=== PATIENT | female | born 1950 | race Caucasian/White ===

== ENCOUNTER 2016-11-04 03:15 | Emergency (ER) | payer MEDICARE, SELFPAY ==
[2016-11-04] MEDS ORDERED: Sodium Chloride 0.9% 10 ML Syringe FLUSH PRN (03:27)
[2016-11-04] MEDS ORDERED: Aspirin 81 MG Tab.Chew PO ONE (03:40)
--- NOTE | 2016-11-04 03:46 | EDM.PDOC ---
ED HISTORY OF PRESENT ILLNESS - General Chief Complaint: Chest Pain Stated Complaint: CHEST PAIN/ARM PAIN Time Seen by Provider: 11/04/16 03:27 Source of Information: Reports: Patient, RN notes reviewed - History of Present Illness INITIAL COMMENTS - FREE TEXT/NARRATIVE: 66-year-old female comes in short of breath. This started at least several days ago and now getting worse. She states several days ago she was aware that just talking on the phone with a friend or relative that this did make her feel short of breath. States yesterday when she did take out some garbage that she had to stop and catch her breath just getting back into the house. SHe did not having chest discomfort yesterday. She has not been coughing any more than usual. 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 She then awakened and she was even more short of breath and decided she best come to the ED and get this checked out. She does have some mild right arm discomfort at this time. She states her legs may be slightly swollen. SHe has no calf pain warmth or erythema. S she did have some slight nausea earlier but that is gone. No dominant pain at this time. No fever or chills. SHe did have an episode of gout about a week ago. She states her hydrochlorothiazide was stopped at that time. She does have history of hypertension and has been on medication for about 10 years. She has no known history of coronary artery disease. She does not smoke. She is type II diabetic on metformin - Related Data Allergies/ADRs: Allergies Allergy/AdvReac Type Severity Reaction Status Date / Time meperidine [From Demerol] Allergy Dizziness Verified 11/04/16 03:42 Home Meds: Home Meds Ascorbic Acid [Vitamin C] 11/04/16 [History] Aspirin [Lo-Dose Aspirin EC] 81 mg PO DAILY 11/04/16 [History] Levothyroxine [Synthroid] 50 mcg PO DAILY 11/04/16 [History] Lisinopril 40 mg PO DAILY 11/04/16 [History] Multivitamin [Multivitamins] 1 tab PO DAILY 11/04/16 [History] [place]-3 Fatty Acids [Fish Oil] 1,000 mg PO QID 11/04/16 [History] Red Yeast Rice 1 tab PO BID 11/04/16 [History] amLODIPine [Norvasc] 5 mg PO DAILY 11/04/16 [History] metFORMIN [Glucophage XR] 500 mg PO BIDMEALS 11/04/16 [History] Past Medical History Cardiovascular History: Reports: Hypertension Psychiatric History: Reports: Anxiety Endocrine/Metabolic History: Reports: Diabetes, type II, Hypothyroidism Social & Family History - Family History Family Medical History: Noncontributory - Tobacco Use Smoking Status *Q: Never Smoker ED ROS GENERAL - Review of Systems Review Of Systems: See Below Constitutional: Denies: fever, chills, diaphoresis HEENT: Denies: Sinus problem, Throat pain Respiratory: Reports: Shortness of Breath (For several days, worsening), Cough. Denies: Wheezing, Pleuritic Chest Pain, Sputum Cardiovascular: Denies: Chest pain, Lightheadedness, Syncope GI/Abdominal: Reports: Nausea (Gone). Denies: Abdominal pain, Vomiting Musculoskeletal: Denies: leg pain Skin: Reports: no symptoms Neurological: Reports: Dizziness (My). Denies: Numbness, Tingling ED EXAM, GENERAL - Physical Exam Exam: See Below General Appearance: alert, mild distress Eye Exam: bilateral eye: PERRL Throat/Mouth: Normal inspection Head: atraumatic. No: facial swelling Neck: supple, full range of motion, other Respiratory/Chest: respiratory distress (Moderate tachypnea noted). No: rales, rhonchi, wheezing Cardiovascular: tachycardia GI/Abdominal: soft, tender (Mild tenderness upper mid abdomen) Back Exam: No: CVA tenderness (L), CVA tenderness (R) Extremities: pedal edema (Very mild bilateral). No: leg pain, increased warmth , redness Neurological: alert, oriented, no motor/sensory deficits Skin Exam: Warm, Dry, Normal color EKG INTERPRETATION EKG Date: 11/04/16 Rhythm: NSR QRS: other (There are Q waves in inferior leads. She does have some ST elevation in inferior leads and also anteriorly associated with the left bundle branch block) Course - Vital Signs Last Recorded V/S: Last Vital Signs Temp 98.5 F 11/04/16 03:20 Pulse 103 H 11/04/16 07:55 Resp 17 11/04/16 07:55 BP 166/89 H 11/04/16 07:55 Pulse Ox 98 11/04/16 07:55 - Orders/Labs/Meds Orders: Active Orders 24 hr Category Date Time Status EKG 12 Lead [EKG Documentation Completion] [RC] STAT Care 11/04/16 03:28 Active Peripheral IV Care [RC] . DIRECTED Care 11/04/16 03:28 Active Peripheral IV Insertion Adult [OM.PC] Stat Oth 11/04/16 03:28 Ordered Labs: Laboratory Tests 11/04/16 11/04/16 11/04/16 Range/Units 03:30 03:30 03:35 WBC 8.75 (3.98-10.04) K/mm3 RBC 4.71 (3.98-5.22) M/mm3 Hgb 13.0 (11.2-15.7) gm/L Hct 39.8 (34.1-44.9) % MCV 84.5 (79.4-94.8) fl MCH 27.6 (25.6-32.2) pg MCHC 32.7 (32.2-35.5) g/dl RDW Std Deviation 45.0 (36.4-46.3) fL Plt Count 240 (182-369) K/mm3 MPV 11.3 (9.4-12.3) fl Neut % (Auto) 67.5 (34.0-71.1) % Lymph % (Auto) 21.3 (19.3-51.7) % [place] % (Auto) 7.5 (4.7-12.5) % Eos % (Auto) 2.9 (0.7-5.8) Baso % (Auto) 0.6 (0.1-1.2) % Neut # (Auto) 5.91 (1.56-6.13) K/mm3 Lymph # (Auto) 1.86 (1.18-3.74) K/mm3 [place] # (Auto) 0.66 H (0.24-0.36) K/mm3 Eos # (Auto) 0.25 (0.04-0.36) K/mm3 Baso # (Auto) 0.05 (0.01-0.08) K/mm3 D-Dimer, Quantitative (0.19-0.59) mg/L Sodium 141 (136-145) mEq/L Potassium 4.1 (3.5-5.1) mEq/L Chloride 105 (98-107) mEq/L Carbon Dioxide 23 (21-32) mEq/L Anion Gap 17.1 H (5-15) BUN 21 H (7-18) mg/dL Creatinine 1.1 H (0.55-1.02) mg/dL Est Cr Clr Drug Dosing 44.66 mL/min Estimated GFR (MDRD) 50 (>60) mL/min BUN/Creatinine Ratio 19.1 H (14-18) Glucose 155 H (80-115) mg/dL Calcium 9.4 (8.5-10.1) mg/dL Total Bilirubin 0.6 (0.2-1.0) mg/dL AST 24 (15-37) U/L ALT 24 (14-59) U/L Alkaline Phosphatase 88 (46-116) U/L Troponin I 0.023 (0.00-0.056) ng/mL B-Natriuretic Peptide 130 H (0-100) pg/mL Total Protein 7.9 (6.4-8.2) g/dl Albumin 3.7 (3.4-5.0) g/dl Globulin 4.2 gm/dL Albumin/Globulin Ratio 0.9 L (1-2) 11/04/16 11/04/16 Range/Units 03:35 05:32 WBC (3.98-10.04) K/mm3 RBC (3.98-5.22) M/mm3 Hgb (11.2-15.7) gm/L Hct (34.1-44.9) % MCV (79.4-94.8) fl MCH (25.6-32.2) pg MCHC (32.2-35.5) g/dl RDW Std Deviation (36.4-46.3) fL Plt Count (182-369) K/mm3 MPV (9.4-12.3) fl Neut % (Auto) (34.0-71.1) % Lymph % (Auto) (19.3-51.7) % [place] % (Auto) (4.7-12.5) % Eos % (Auto) (0.7-5.8) Baso % (Auto) (0.1-1.2) % Neut # (Auto) (1.56-6.13) K/mm3 Lymph # (Auto) (1.18-3.74) K/mm3 [place] # (Auto) (0.24-0.36) K/mm3 Eos # (Auto) (0.04-0.36) K/mm3 Baso # (Auto) (0.01-0.08) K/mm3 D-Dimer, Quantitative 0.74 H (0.19-0.59) mg/L Sodium (136-145) mEq/L Potassium (3.5-5.1) mEq/L Chloride (98-107) mEq/L Carbon Dioxide (21-32) mEq/L Anion Gap (5-15) BUN (7-18) mg/dL Creatinine (0.55-1.02) mg/dL Est Cr Clr Drug Dosing mL/min Estimated GFR (MDRD) (>60) mL/min BUN/Creatinine Ratio (14-18) Glucose (80-115) mg/dL Calcium (8.5-10.1) mg/dL Total Bilirubin (0.2-1.0) mg/dL AST (15-37) U/L ALT (14-59) U/L Alkaline Phosphatase (46-116) U/L Troponin I 0.029 (0.00-0.056) ng/mL B-Natriuretic Peptide (0-100) pg/mL Total Protein (6.4-8.2) g/dl Albumin (3.4-5.0) g/dl Globulin gm/dL Albumin/Globulin Ratio (1-2) Meds: Medications Discontinued Medications Generic Name Dose Route Start Last Admin Trade Name Freq PRN Reason Stop Dose Admin Aspirin 324 mg 11/04/16 03:40 11/04/16 03:48 Aspirin PO 11/04/16 03:41 324 mg ONETIME ONE Administration Heparin Sodium (Porcine) 8,000 units 11/04/16 06:41 11/04/16 06:50 Heparin Sodium IVPUSH 11/04/16 06:42 8,000 units ONETIME ONE Administration Heparin Sodium/Dextrose 25,000 units in 500 mls @ 31.298 mls/hr 11/04/16 06: 45 Heparin 25,000 Units In D5w 500 Ml IV TITRATE ROSELINE Protocol 15 UNITS/KG/HR Lorazepam 0.25 mg 11/04/16 06:45 11/04/16 06:54 Ativan IVPUSH 11/04/16 06:46 0.25 mg ONETIME ONE Administration Sodium Chloride 10 ml 11/04/16 03:27 11/04/16 03:48 Saline Flush FLUSH 10 ml ASDIRECTED PRN Administration Keep Vein Open - Re-Assessments/Exams Free Text/Narrative Re-Assessment/Exam: 11/04/16 06:33. Repeat troponin came back at 0.29, initial trop 0.23. As noted patient presented with tachypnea, tachycardia, right arm discomfort. An extremely concerned that she has progressing cardiac disease with acute coronary syndrome. I visited with hospitalist and reservations agent periodontist for [facility] who do accept patient in transfer. We will be sending her by ground ambulance. She continues to have no chest pain in her right arm discomfort has resolved. She did become extremely anxious when talking about need for transfer need for further cardiac evaluation. We have given 0.25 mg Ativan IV in addition to prior medications given. 11/05/16 00:15 Departure - Departure Time of Disposition: 06:30 Disposition: DC/Tfer to Acute Hospital 02 Reason for Transfer *Q: Other Condition: fair Clinical Impression: Acute coronary syndrome Forms: ED Department Discharge - My Orders Last 24 Hours: My Active Orders 11/04/16 03:28 EKG 12 Lead [EKG Documentation Completion] [RC] STAT Peripheral IV Care [RC] . DIRECTED Peripheral IV Insertion Adult [OM.PC] Stat - Assessment/Plan Last 24 Hours: My Active Orders 11/04/16 03:28 EKG 12 Lead [EKG Documentation Completion] [RC] STAT Peripheral IV Care [RC] . DIRECTED Peripheral IV Insertion Adult [OM.PC] Stat
[2016-11-04] MEDS ORDERED: Heparin Sodium 5,000 Units/ML Vial IVPUSH ONE (06:41)
[2016-11-04] MEDS ORDERED: LORazepam 2 MG/ML MDV IVPUSH ONE (06:45)
[2016-11-04] MEDS ORDERED: Heparin Sodium/D5W 25,000 UNITS/500 ML BAG IV SCH (06:45)
[2016-11-04 08:03] VITALS: BP 166/89
--- NOTE | 2016-11-04 10:03 | CR ---
Chest: Frontal view of the chest was obtained. Comparison: No previous study. Heart size appears within normal limits for portable technique. Mild tortuosity of the thoracic aorta is seen. Lungs are clear. Bony structures are grossly intact. Impression: 1. Nothing acute is identified on portable chest x-ray. Diagnostic code #1 I agree with preliminary report issued by [facility] (report finalized on 11/04/16, 5:12 AM Central Time)
== END 2016-11-04 08:00 ==
LOC: JD.ED 03:15
DX: I24.9 Acute ischemic heart disease, unspecified (principal); I10 Essential (primary) hypertension; F41.9 Anxiety disorder, unspecified; E11.9 Type 2 diabetes mellitus without complications; E03.9 Hypothyroidism, unspecified; Z79.82 Long term (current) use of aspirin; Z79.84 Long term (current) use of oral hypoglycemic drugs; Z79.899 Other long term (current) drug therapy; Z88.5 Allergy status to narcotic agent
CPT/HCPCS: 36415; 71010; 80053; 83880; 84484; 85025; 85379; 93005; 96365; 96375; 99285; A9270; J1644; J2060; J7050; 99284

== ENCOUNTER 2021-04-23 07:37 | Day surgery (SDC) | payer MEDICARE, OTHER, SELFPAY ==
[~2021-04-23 07:37] MED LIST: Cefuroxime 10 MG/ML SYRINGE EYELF SCH; Lidocaine 1% PF 2 ML SDV INJECT SCH; Pilocarpine 4% Ophth Soln 15 ML Bot EYELF SCH
[2021-04-23] MEDS: Polymyxin B/Trimethoprim 10 ML Bottle EYELF SCH ×3 (07:58→09:50)
[2021-04-23] MEDS: Brimonidine 0.2% Ophth Soln 5 ML Bottle EYELF SCH ×3 (08:03→09:50)
[2021-04-23] MEDS: Phenylephrine 2.5% Ophth Soln 2 ML Bot EYELF SCH ×5 (08:07→09:32)
[2021-04-23] MEDS: Tropicamide 1% Ophth Soln 15 ML Bottle EYELF SCH ×5 (08:10→08:52)
--- NOTE | 2021-04-23 08:13 | PCM.PREANE ---
Preanesthetic Assessment - Procedure Proposed Procedure: Left CE with IOL - Anesthesia/Transfusion/Family Hx Anesthesia History: No Prior Anesthesia Family History of Anesthesia Reaction: No - Review of Systems Pulmonary: No Symptoms Cardiovascular: Other (HTN, PACEMAKER/defibulator, ) Gastrointestinal: No Symptoms Neurological: No Symptoms Other: Reports: None (GOUT), Diabetes (NIDDM), Thyroid Problems - Physical Assessment NPO Status Date: 04/22/21 NPO Status Time: 21:00 Height: 1.65 m Weight: 112.945 kg ASA Class: 3 Mental Status: Alert & Oriented x3 Airway Class: Mallampati = 1 Dentition: Reports: Normal Dentition Thyro-Mental Finger Breadths: 3 Mouth Opening Finger Breadths: 3 ROM/Head Extension: Full Lungs: Clear to Auscultation, Normal Respiratory Effort Cardiovascular: Regular Rate, Regular Rhythm - Allergies Allergies/Adverse Reactions: Allergies Allergy/AdvReac Type Severity Reaction Status Date / Time meperidine [From Demerol] AdvReac Dizziness Verified 04/22/21 11:49 - Blood Blood Available: No Product(s) Available: None - Acknowledgements Anesthesia Type Planned: MAC Pt an Appropriate Candidate for the Planned Anesthesia: Yes Alternatives and Risks of Anesthesia Discussed w Pt/Guardian: Yes Pt/Guardian Understands and Agrees with Anesthesia Plan: Yes PreAnesthesia Questionnaire Cardiovascular History: Reports: Hypertension Psychiatric History: Reports: Anxiety Endocrine/Metabolic History: Reports: Diabetes, Type II, Hypothyroidism - HOME MEDS Home Medications: Home Meds Aspirin [Lo-Dose Aspirin EC] 81 mg PO DAILY 11/04/16 [History] Levothyroxine [Synthroid] 50 mcg PO DAILY 11/04/16 [History] Lisinopril 40 mg PO DAILY 11/04/16 [History] Multivitamin [Multivitamins] 1 tab PO DAILY 11/04/16 [History] [place]-3 Fatty Acids [Fish Oil] 1,000 mg PO QID 11/04/16 [History] metFORMIN [Glucophage XR] 500 mg PO BIDMEALS 11/04/16 [History] Acetaminophen [Tylenol] 650 mg PO Q4HR PRN 04/22/21 [History] Furosemide [Lasix] 20 mg PO DAILY 04/22/21 [History] Metoprolol Succinate 100 mg PO DAILY 04/22/21 [History] Nitroglycerin [Nitrostat] 0.4 mg PO ASDIRECTED PRN 04/22/21 [History] Rosuvastatin [Crestor] 5 mg PO DAILY 04/22/21 [History] - CURRENT (IN HOUSE) MEDS Current Meds: Current Medications Brimonidine Tartrate (Brimonidine 0.2% Ophth Soln 5 Ml Bottle) 0 ml EYELF ASDIRECTED ROSELINE Stop: 04/23/21 18:00 Last Admin: 04/23/21 08:03 Dose: 1 drop Documented by: Cefuroxime Sodium (Cefuroxime 10 Mg/Ml Syringe) 0 mg EYELF ASDIRECTED ROSELINE Stop: 04/23/21 18:00 Lidocaine HCl (Lidocaine 1% Pf 2 Ml Sdv) 0 ml INJECT ASDIRECTED ROSELINE Stop: 04/23/21 18:00 Phenylephrine HCl (Phenylephrine 2.5% Ophth Soln 2 Ml Bot) 0 ml EYELF ASDIRECTED ROSELINE Stop: 04/23/21 18:00 Last Admin: 04/23/21 08:07 Dose: 1 drop Documented by: Pilocarpine HCl (Pilocarpine 4% Ophth Soln 15 Ml Bot) 0 ml EYELF ASDIRECTED ROSELINE Stop: 04/23/21 18:00 Polymyxin/Trimethoprim Sulfate (Polymyxin B/Trimethoprim 10 Ml Bottle) 0 ml EYELF ASDIRECTED ROSELINE Stop: 04/23/21 18:00 Last Admin: 04/23/21 07:58 Dose: 1 drop Documented by: Tetracaine HCl (Tetracaine Hcl/Pf 0.5% 4 Ml Bottle) 0 ml EYEBOTH ASDIRECTED ROSELINE Stop: 04/23/21 18:00 Tropicamide (Tropicamide 1% Ophth Soln 15 Ml Bottle) 0 ml EYELF ASDIRECTED ROSELINE Stop: 04/23/21 18:00
[2021-04-23] MEDS: Tetracaine HCl/PF 0.5% 4 ML Bottle EYEBOTH SCH ×4 (08:57→09:50)
--- NOTE | 2021-04-23 09:52 | PCM48HPAN ---
Post Anesthesia Note - EVALUATION WITHIN 48HRS OF ANESTHETIC Vital Signs in Normal Range: Yes Patient Participated in Evaluation: Yes Respiratory Function Stable: Yes Airway Patent: Yes Cardiovascular Function Stable: Yes Hydration Status Stable: Yes Pain Control Satisfactory: Yes Nausea and Vomiting Control Satisfactory: Yes Mental Status Recovered: Yes
[2021-04-23 10:13] VITALS: BP 197/88; PULSE 98
== END 2021-04-23 10:03 | disposition home or self-care (01) ==
LOC: JD.SDS 07:37
PROVIDERS: ATTEND Ophthalmology
DX: E11.36 Type 2 diabetes mellitus with diabetic cataract (principal); H25.813 Combined forms of age-related cataract, bilateral; E11.3293 Type 2 diabetes mellitus with mild nonproliferative diabetic retinopathy without macular edema, bilateral; H35.3131 Nonexudative age-related macular degeneration, bilateral, early dry stage; H35.363 Drusen (degenerative) of macula, bilateral; H02.831 Dermatochalasis of right upper eyelid; H02.834 Dermatochalasis of left upper eyelid; H57.813 Brow ptosis, bilateral; H40.053 Ocular hypertension, bilateral; E78.00 Pure hypercholesterolemia, unspecified; I10 Essential (primary) hypertension; Z98.890 Other specified postprocedural states; Z79.82 Long term (current) use of aspirin; Z79.899 Other long term (current) drug therapy
CPT/HCPCS: 66984; 82947; C1780; J0697

== ENCOUNTER 2021-05-19 07:38 | Day surgery (SDC) | payer MEDICARE ==
[~2021-05-19 07:38] MED LIST changes: -Cefuroxime 10 MG/ML SYRINGE EYELF SCH; +Cefuroxime 10 MG/ML SYRINGE EYERT SCH; -Pilocarpine 4% Ophth Soln 15 ML Bot EYELF SCH; +Pilocarpine 4% Ophth Soln 15 ML Bot EYERT SCH
[2021-05-19] MEDS: Polymyxin B/Trimethoprim 10 ML Bottle EYERT SCH ×3 (07:50→10:00)
[2021-05-19] MEDS: Brimonidine 0.2% Ophth Soln 5 ML Bottle EYERT SCH ×3 (07:55→10:00)
[2021-05-19] MEDS: Phenylephrine 2.5% Ophth Soln 2 ML Bot EYERT SCH ×5 (08:00→09:45)
[2021-05-19] MEDS: Tropicamide 1% Ophth Soln 15 ML Bottle EYERT SCH ×4 (08:05→08:50)
--- NOTE | 2021-05-19 08:45 | PCM.PREANE ---
Preanesthetic Assessment - Procedure Proposed Procedure: R eye cataract extraction - Anesthesia/Transfusion/Family Hx Anesthesia History: Prior Anesthesia Without Reaction Family History of Anesthesia Reaction: No Transfusion History: No Prior Transfusion(s) Intubation History: Unknown - Review of Systems General: No Symptoms Pulmonary: No Symptoms Cardiovascular: No Symptoms Gastrointestinal: No Symptoms Neurological: No Symptoms Other: Reports: Diabetes, Thyroid Problems - Physical Assessment NPO Status Date: 05/18/21 NPO Status Time: 22:00 Vital Signs: Last Vital Signs Temp 99.2 F 05/19/21 07:40 Pulse 99 05/19/21 07:40 Resp 16 05/19/21 07:40 BP 170/86 H 05/19/21 07:40 Pulse Ox 97 05/19/21 07:40 Height: 75.9 m Weight: 113 kg ASA Class: 2 Mental Status: Alert & Oriented x3 Airway Class: Mallampati = 2 Dentition: Reports: [place](s), [place] Thyro-Mental Finger Breadths: 2 Mouth Opening Finger Breadths: 3 ROM/Head Extension: Full Lungs: Clear to Auscultation, Normal Respiratory Effort Cardiovascular: Regular Rate, Regular Rhythm, Other (Pacemaker with debrillator) - Allergies Allergies/Adverse Reactions: Allergies Allergy/AdvReac Type Severity Reaction Status Date / Time meperidine [From Demerol] AdvReac Dizziness Verified 05/19/21 07:54 - Anesthesia Plan Beta Shantell: Metoprolol Med Last Dose Date: 05/19/21 Med Last Dose Time: 07:00 - Acknowledgements Anesthesia Type Planned: MAC Pt an Appropriate Candidate for the Planned Anesthesia: Yes Alternatives and Risks of Anesthesia Discussed w Pt/Guardian: Yes Pt/Guardian Understands and Agrees with Anesthesia Plan: Yes PreAnesthesia Questionnaire HEENT History: Reports: Cataract, Glaucoma Cardiovascular History: Reports: Automatic Implantable Cardioverter Defibrillators, High Cholesterol, Hypertension, Pacemaker Respiratory History: Reports: None Gastrointestinal History: Reports: None Genitourinary History: Reports: None CAN STACKER History: Reports: None Musculoskeletal History: Reports: Arthritis Neurological History: Reports: None Psychiatric History: Reports: Anxiety Endocrine/Metabolic History: Reports: Diabetes, Type II, Hypothyroidism, Obesity/BMI 30+ Hematologic History: Reports: None Immunologic History: Reports: None Oncologic (Cancer) History: Reports: None Dermatologic History: Reports: None - Infectious Disease History Infectious Disease History: Reports: None - Past Surgical History HEENT Surgical History: Reports: Cataract Surgery Cardiovascular Surgical History: Reports: AICD, Other (See Below) (Heart surgery) Other Cardiovascular Surgeries/Procedures: Pacemaker placement with AICD per patient January 2018 - SUBSTANCE USE Tobacco Use Status *Q: Never Tobacco User Tobacco Use Within Last Twelve Months: No Second Hand Smoke Exposure: No Days Per Week of Alcohol Use: 0 Number of Drinks Per Day: 0 Total Drinks Per Week: 0 Recreational Drug Use History: No - HOME MEDS Home Medications: Home Meds Aspirin [Lo-Dose Aspirin EC] 81 mg PO DAILY 11/04/16 [History] Levothyroxine [Synthroid] 50 mcg PO DAILY 11/04/16 [History] Lisinopril 40 mg PO DAILY 11/04/16 [History] Multivitamin [Multivitamins] 1 tab PO DAILY 11/04/16 [History] [place]-3 Fatty Acids [Fish Oil] 1,000 mg PO QID 11/04/16 [History] metFORMIN [Glucophage XR] 500 mg PO BIDMEALS 11/04/16 [History] Acetaminophen [Tylenol] 650 mg PO Q4HR PRN 04/22/21 [History] Furosemide [Lasix] 20 mg PO DAILY 04/22/21 [History] Metoprolol Succinate 100 mg PO DAILY 04/22/21 [History] Nitroglycerin [Nitrostat] 0.4 mg PO ASDIRECTED PRN 04/22/21 [History] Rosuvastatin [Crestor] 5 mg PO DAILY 04/22/21 [History] - CURRENT (IN HOUSE) MEDS Current Meds: Current Medications Brimonidine Tartrate (Brimonidine 0.2% Ophth Soln 5 Ml Bottle) 0 ml EYERT ASDIRECTED ROSELINE Stop: 05/19/21 16:00 Last Admin: 05/19/21 08:38 Dose: 1 drop Documented by: Cefuroxime Sodium (Cefuroxime 10 Mg/Ml Syringe) 0 mg EYERT ASDIRECTED ROSELINE Stop: 05/19/21 16:00 Lidocaine HCl (Lidocaine 1% Pf 2 Ml Sdv) 0 ml INJECT ASDIRECTED ROSELINE Stop: 05/19/21 16:00 Phenylephrine HCl (Phenylephrine 2.5% Ophth Soln 2 Ml Bot) 0 ml EYERT ASDIRECTED ROSELINE Stop: 05/19/21 16:00 Last Admin: 05/19/21 08:20 Dose: 1 drop Documented by: Pilocarpine HCl (Pilocarpine 4% Ophth Soln 15 Ml Bot) 0 ml EYERT ASDIRECTED ROSELINE Stop: 05/19/21 16:00 Polymyxin/Trimethoprim Sulfate (Polymyxin B/Trimethoprim 10 Ml Bottle) 0 ml EYERT ASDIRECTED ROSELINE Stop: 05/19/21 16:00 Last Admin: 05/19/21 08:30 Dose: 1 drop Documented by: Tetracaine HCl (Tetracaine Hcl/Pf 0.5% 4 Ml Bottle) 0 ml EYEBOTH ASDIRECTED ROSELINE Stop: 05/19/21 16:00 Tropicamide (Tropicamide 1% Ophth Soln 15 Ml Bottle) 0 ml EYERT ASDIRECTED ROSELINE Stop: 05/19/21 16:00 Last Admin: 05/19/21 08:25 Dose: 1 drop Documented by:
[2021-05-19] MEDS: Tetracaine HCl/PF 0.5% 4 ML Bottle EYEBOTH SCH ×4 (08:58→09:46)
--- NOTE | 2021-05-19 10:01 | PCM48HPAN ---
Post Anesthesia Note - EVALUATION WITHIN 48HRS OF ANESTHETIC Vital Signs in Normal Range: Yes Patient Participated in Evaluation: Yes Respiratory Function Stable: Yes Airway Patent: Yes Cardiovascular Function Stable: Yes Hydration Status Stable: Yes Pain Control Satisfactory: Yes Nausea and Vomiting Control Satisfactory: Yes Mental Status Recovered: Yes Vital Signs: Last Vital Signs Temp 37.3 C 05/19/21 07:40 Pulse 99 05/19/21 07:40 Resp 16 05/19/21 07:40 BP 170/86 H 05/19/21 07:40 Pulse Ox 97 05/19/21 07:40
[2021-05-19 10:11] VITALS: BP 142/88; PULSE 90
== END 2021-05-19 10:09 | disposition home or self-care (01) ==
LOC: JD.SDS 07:38
PROVIDERS: ATTEND Ophthalmology
DX: E11.36 Type 2 diabetes mellitus with diabetic cataract (principal); H25.811 Combined forms of age-related cataract, right eye; H40.053 Ocular hypertension, bilateral; E11.3293 Type 2 diabetes mellitus with mild nonproliferative diabetic retinopathy without macular edema, bilateral; H35.363 Drusen (degenerative) of macula, bilateral; H35.3131 Nonexudative age-related macular degeneration, bilateral, early dry stage; H57.813 Brow ptosis, bilateral; E78.00 Pure hypercholesterolemia, unspecified; I10 Essential (primary) hypertension; Z98.890 Other specified postprocedural states; Z79.899 Other long term (current) drug therapy; Z79.82 Long term (current) use of aspirin; Z88.8 Allergy status to other drugs, medicaments and biological substances; Z96.1 Presence of intraocular lens
CPT/HCPCS: 66984; J0697; C1780